=== PATIENT | male | born 1965 | race Caucasian/White ===

== ENCOUNTER 2016-09-28 13:53 | Observation (INO) | payer OTHER ==
[~2016-09-28] VITALS: Ht 172.7 cm; Wt 84.2 kg
[2016-09-28] MEDS ORDERED: SODIUM CHLORIDE 0.9% 1,000 ML IV ONE (14:25)
[2016-09-28] MEDS ORDERED: SODIUM CHLORIDE FLUSH 10ML SYR IVF ONE (14:30)
[2016-09-28 14:56] LABS: BLOOD UREA NITROGEN 16 mg/dL (7-18)
[2016-09-28 14:59] LABS: ASPARTATE AMINO TRANSFERASE 12 U/L (15-37)
[2016-09-28] MEDS ORDERED: HEPARIN 5,000 UNITS/ML, 1ML ONE (15:43)
[2016-09-28] MEDS ORDERED: HEPARIN 25,000 UNITS/500ML PMX 500 ML ONE (15:43)
[2016-09-28] MEDS ORDERED: HEPARIN 5,000 UNITS/ML, 1ML IV PRN (16:00)
[2016-09-28] MEDS ORDERED: HEPARIN 25,000 UNITS/500ML PMX 500 ML IV PRN (16:00)
[2016-09-28] MEDS ORDERED: HEPARIN 5,000 UNITS/ML, 1ML IV ONE (16:00)
[2016-09-28] MEDS ORDERED: ONDANSETRON 2MG/ML, 2ML IVPush PRN (17:00)
[2016-09-28] MEDS ORDERED: HYDROcodone/APAP 5/325 TABLET PO PRN (17:00)
[2016-09-28] MEDS ORDERED: ACETAMINOPHEN 325 MG TABLET PO PRN (17:00)
[2016-09-28] MEDS ORDERED: TRAZODONE 50MG TABLET PO PRN (17:00)
[2016-09-28 20:07] VITALS: BP 118/72
[2016-09-28] MEDS: FAMOTIDINE 20 MG TABLET PO SCH (22:12)
[2016-09-28] MEDS: APIXABAN 5 MG TABLET PO SCH (22:12)
[2016-09-28] MEDS ORDERED: PNEUMOCOCCAL 23 VACCINE IM-VACC ONE (23:00)
[2016-09-29 02:16] VITALS: BP 121/78
[2016-09-29 05:13] LABS: BLOOD UREA NITROGEN 17 mg/dL (7-18)
[2016-09-29 07:21] VITALS: BP 125/76
[2016-09-29] MEDS: APIXABAN 5 MG TABLET PO SCH (08:28)
[2016-09-29] MEDS: FAMOTIDINE 20 MG TABLET PO SCH (08:28)
[2016-09-29] MEDS ORDERED: SENNA/DOCUSATE TABLET PO SCH (09:00)
[2016-09-29] MEDS ORDERED: APIX5TAB PO (09:41)
[2016-10-01 06:08] LABS: DILUTE PROTHROMBIN TIME (DPT) 43.6 sec (0.0-55.0); LUPUS REFLEX INTERPRETATION Comment: (.); PTT-LA 44.2 sec (0.0-43.6)
[2016-10-05] MEDS ORDERED: APIXABAN 5 MG TABLET PO SCH (21:00)
== END 2016-09-29 12:20 | disposition home or self-care (01) ==
LOC: ED 15:40 → INTOOBSV 15:41 → EDIP 15:41 → ED 16:07 → 3NE 18:00 → UNDODISOB 09-29 11:06
PROVIDERS: ADMIT Internal Medicine; ATTEND Internal Medicine
DX: I82.402 Acute embolism and thrombosis of unspecified deep veins of left lower extremity (principal); D72.829 Elevated white blood cell count, unspecified; F17.210 Nicotine dependence, cigarettes, uncomplicated; Z83.3 Family history of diabetes mellitus; Z82.49 Family history of ischemic heart disease and other diseases of the circulatory system; Z86.718 Personal history of other venous thrombosis and embolism; Z23 Encounter for immunization
CPT/HCPCS: 36415; 71010; 80048; 80053; 81003; 81240; 81241; 85025; 85300; 85303; 85306; 85520; 85610; 85613; 85670; 85705; 85730; 85732; 86147; 90471; 90732; 93005; 96365; 96366; 96376; 99285; J1644; G0378

== ENCOUNTER → 2017-09-20 | Outpatient (CLI) | payer OTHER ==
[~2017-09-20] MED LIST: APIX5TAB PO
== END | disposition home or self-care (01) ==
LOC: CFH 12:14
PROVIDERS: ATTEND Family Medicine
DX: R60.0 Localized edema (principal)